=== PATIENT | female | born 1940 | race African-American/Black ===

== ENCOUNTER 2017-12-17 21:09 | Inpatient (IN) ==
[2017-12-18] MEDS ORDERED: MORPHINE 4 MG/1 ML VIAL IV PRN (01:54)
[2017-12-18] MEDS ORDERED: ONDANSETRON 4 MG/2 ML VIAL IV PRN (01:54)
[2017-12-18] MEDS ORDERED: LEVOFLOXACIN INJ 500 MG in PREMIX 1 EACH IV SCH (02:30)
[2017-12-18] MEDS: SODIUM CHLORIDE 0.9% 1,000 ML IV SCH ×3 (02:51→20:53)
[2017-12-18] MEDS: LEVOFLOXACIN INJ 500 MG in PREMIX 1 EACH IV SCH (02:52)
[2017-12-18 04:52] LABS: Basophils % 0.6 % (0.0-0.8); Eosinophils % 0.2 % (0.00-10.9); Hematocrit 30.7 VOL% (35.7-47.0); Hemoglobin 9.1 GM/DL (12.0-16.0); Immature Granulocytes % 0.3 %; Immature Granulocytes Absolute 0.02 #; Mean Corpuscular HGB Conc 29.6 GM/DL (32-36); Mean Corpuscular Hemoglobin 23 PG (27-34); Mean Corpuscular Volume 78.1 FL (87-102); Monocytes # 0.6 10*3/uL (0.11-0.8); Monocytes % 8.9 % (1.7-12.7); Platelet Count 145 T/CUMM (130-400); Red Blood Count 3.93 MC/CUMM (3.8-5.5); Red Cell Distribution Width 15.6 % (9.3-17.3); White Blood Count 6.6 T/CUMM (4-12)
[2017-12-18 05:15] LABS: Alanine Aminotransferase 11 U/L (13-56); Albumin 2.1 G/DL (3.4-5.0); Alkaline Phosphatase 59 U/L (45-117); Aspartate Amino Transferase 8 U/L (0-37); Bilirubin,Total < 0.39 MG/DL (0.2-1.0); Blood Urea Nitrogen 27 MG/DL (7-18); Calcium 10.3 MG/DL (8.5-10.1); Glucose 110 MG/DL (74-106); Osmolality,Calculated 295.6 MOS/KG (273-304); Sodium 146 MMOL/L (136-145); Total Protein 6.1 G/DL (6.4-8.3)
[2017-12-18 05:24] LABS: Anisocytosis 1+; Calcium 10.4 MG/DL (8.5-10.1); Osmolality,Calculated 293.7 MOS/KG (273-304); Poikilocytosis 1+; Risk Ratio 5.52; Thyroid Stimulating Hormone 2.49 uIU/ml (0.358-3.74); VLDL CHOLESTEROL 25.8 MG/DL
[2017-12-18 05:25] LABS: Acanthocytes 1+
[2017-12-18] MEDS ORDERED: DORZOLAMIDE/TIMOLOL OPH SOLN 10 ML BOTTLE BOTH EYES SCH (09:00)
[2017-12-18] MEDS: DIFLUPREDNATE 0.05% OPH EMUL 5 ML BOTTLE LEFT EYE SCH ×4 (09:42→20:53)
[2017-12-18] MEDS: risperiDONE 0.5 MG TABLET PO SCH ×2 (11:35→20:53)
[2017-12-18] MEDS: CIPROFLOXACIN 0.3% OPH SOLN 2.5 ML BOTTLE LEFT EYE SCH ×2 (11:35→20:53)
[2017-12-18] MEDS: prednisoLONE 5 MG TABLET PO SCH (11:35)
[2017-12-18] MEDS: ENOXAPARIN 30 MG/0.3 ML SYRINGE SUBCUT SCH (11:35)
[2017-12-18] MEDS: PANTOPRAZOLE 40 MG TABLET PO SCH (11:35)
[2017-12-18] MEDS: amLODIPine 10 MG TABLET PO SCH (11:35)
[2017-12-18] MEDS: LEFLUNOMIDE 10 MG TABLET PO SCH (11:45)
[2017-12-18 12:42] LABS: Apearance,Urine Slightly Hazy (Clear); Bacteria,Urine Occasional /HPF (Few); Bilirubin,Urine Negative (Negative); Blood, Urine Small mg/dL (Negative); Glucose,Urine (UA) Negative (Negative); Ketones,Urine Negative (Negative); Nitrite,Urine Negative (Negative); Protein,Urine Negative; RBC,Urine 9 /HPF (0-4); Squamous Epithelial Cell,Urine Occasional /HPF (0-10); Urine Color Yellow (Yellow); Urine Specific Gravity 1.009 (1.001-1.035); Urine Urobilinogen < 2.0 EU/DL (0.2-1.0); WBC,Urine 46 /HPF (0-6)
[2017-12-19] MEDS: SODIUM CHLORIDE 0.9% 1,000 ML IV SCH ×2 (02:00→11:53)
[2017-12-19 04:47] LABS: Basophils % 0.4 % (0.0-0.8); Eosinophils # 0.1 10*3/uL (0.0-0.87); Eosinophils % 0.7 % (0.00-10.9); Hematocrit 33.5 VOL% (35.7-47.0); Immature Granulocytes % 0.4 %; Immature Granulocytes Absolute 0.03 #; Lymphocytes # 1.8 10*3/uL (1.4-4.0); Lymphocytes % 23.8 % (21.3-54.2); Mean Corpuscular HGB Conc 29.9 GM/DL (32-36); Mean Corpuscular Hemoglobin 23 PG (27-34); Mean Corpuscular Volume 77.4 FL (87-102); Monocytes # 0.6 10*3/uL (0.11-0.8); Monocytes % 7.6 % (1.7-12.7); Neutrophils # 5.1 10*3/uL (1.4-7.4); Neutrophils % 67.1 % (38.7-73.9); Platelet Count 190 T/CUMM (130-400); Red Blood Count 4.33 MC/CUMM (3.8-5.5); Red Cell Distribution Width 15.7 % (9.3-17.3); White Blood Count 7.6 T/CUMM (4-12)
[2017-12-19 05:05] LABS: Calcium 10.9 MG/DL (8.5-10.1); Osmolality,Calculated 289.7 MOS/KG (273-304); Potassium 4.2 MMOL/L (3.5-5.1)
[2017-12-19 05:37] LABS: Hypochromasia 1+
[2017-12-19 05:38] LABS: Acanthocytes Few; Anisocytosis 1+; Microcytosis 1+; Ovalocytes Few
[2017-12-19 05:39] LABS: Burr Cells Slight; Platelet Estimate Adequate; Poikilocytosis 1+
[2017-12-19] MEDS: LEFLUNOMIDE 10 MG TABLET PO SCH (10:05)
[2017-12-19] MEDS: PANTOPRAZOLE 40 MG TABLET PO SCH (10:06)
[2017-12-19] MEDS: ENOXAPARIN 30 MG/0.3 ML SYRINGE SUBCUT SCH (10:06)
[2017-12-19] MEDS: prednisoLONE 5 MG TABLET PO SCH (10:06)
[2017-12-19] MEDS: amLODIPine 10 MG TABLET PO SCH (10:06)
[2017-12-19] MEDS: risperiDONE 0.5 MG TABLET PO SCH ×2 (10:06→21:33)
[2017-12-19] MEDS: DIFLUPREDNATE 0.05% OPH EMUL 5 ML BOTTLE LEFT EYE SCH ×3 (11:10→21:32)
[2017-12-19] MEDS: CIPROFLOXACIN 0.3% OPH SOLN 2.5 ML BOTTLE LEFT EYE SCH ×2 (11:10→21:32)
[2017-12-19] MEDS: SODIUM BICARBONATE 650 MG TABLET PO SCH ×2 (16:19→21:33)
[2017-12-19] MEDS: CINACALCET 30 MG TABLET PO SCH (21:32)
[2017-12-20] MEDS: LEVOFLOXACIN INJ 500 MG in PREMIX 1 EACH IV SCH (03:26)
[2017-12-20 06:04] LABS: Calcium 10.6 MG/DL (8.5-10.1); Osmolality,Calculated 282.1 MOS/KG (273-304); Potassium 3.6 MMOL/L (3.5-5.1)
[2017-12-20] MEDS: SODIUM BICARBONATE 650 MG TABLET PO SCH (08:17)
[2017-12-20] MEDS: amLODIPine 10 MG TABLET PO SCH (08:17)
[2017-12-20] MEDS: LEFLUNOMIDE 10 MG TABLET PO SCH (08:17)
[2017-12-20] MEDS: PANTOPRAZOLE 40 MG TABLET PO SCH (08:17)
[2017-12-20] MEDS: prednisoLONE 5 MG TABLET PO SCH (08:17)
[2017-12-20] MEDS: risperiDONE 0.5 MG TABLET PO SCH (08:17)
[2017-12-20] MEDS: CIPROFLOXACIN 0.3% OPH SOLN 2.5 ML BOTTLE LEFT EYE SCH (08:18)
[2017-12-20] MEDS: CINACALCET 30 MG TABLET PO SCH (08:18)
[2017-12-20] MEDS: DIFLUPREDNATE 0.05% OPH EMUL 5 ML BOTTLE LEFT EYE SCH (08:18)
[2017-12-20] MEDS: ENOXAPARIN 30 MG/0.3 ML SYRINGE SUBCUT SCH (08:18)
[2017-12-20 11:13] VITALS: BP 121/89
== END 2017-12-20 13:00 | disposition home or self-care (01) | DRG 690 ==
LOC: SUATTDRO 12-18 00:55 → N.3E 12-18 00:55
PROVIDERS: ADMIT Hospitalist; ATTEND Internal Medicine